=== PATIENT | female | born 1990 | race Caucasian/White ===

== ENCOUNTER → 2021-01-13 | Outpatient (CLI) | payer OTHER ==
[~2021-01-13] MED LIST: CHOL200078 PO; LACT1CAP29 PO; OXYC1TAB15 PO; ZINC50TA39 PO; [UNRECOGNIZED DRUG - REMARK]
== END ==
LOC: LAB 12:51
PROVIDERS: ATTEND Surgery
DX: Z01.812 Encounter for preprocedural laboratory examination (principal); K40.90 Unilateral inguinal hernia, without obstruction or gangrene, not specified as recurrent; Z20.822 Contact with and (suspected) exposure to COVID-19
CPT/HCPCS: U0003; U0005

== ENCOUNTER 2021-01-18 06:06 | Day surgery (SDC) | payer OTHER ==
[~2021-01-18] VITALS: Ht 162.6 cm; Wt 59.5 kg
[~2021-01-18 06:06] MED LIST changes: +ACETAMINOPHEN 500 MG TABLET PO PRN; -OXYC1TAB15 PO; +ceFAZolin SODIUM IV Push 1 GM VIAL. IVP PRN
[2021-01-18] MEDS ORDERED: PROPOFOL 10 MG/ML (20ML) VIAL. IV ONE (06:24)
[2021-01-18] MEDS ORDERED: ROCURONIUM 50 MG/5 ML VIAL. ONE (06:25)
[2021-01-18] MEDS ORDERED: LIDOCAINE 2% PF 5 ML VIAL. ONE (06:25)
[2021-01-18] MEDS ORDERED: fentaNYL PF VIAL 100 MCG/2 ML VIAL ONE (06:25)
[2021-01-18] MEDS ORDERED: ONDANSETRON PF 4 MG/2 ML VIAL. ONE (06:25)
[2021-01-18] MEDS ORDERED: DEXAMETHASONE SOD PHOS 20 MG/5 ML VIAL. ONE (06:25)
[2021-01-18] MEDS ORDERED: IV RINGERS,LACTATED 1000ML 1,000 ML IV SCH (07:00)
[2021-01-18] MEDS ORDERED: MIDAZOLAM HCL/PF 2 MG/2 ML VIAL. ONE (07:06)
[2021-01-18] MEDS ORDERED: BUPIVACAINE-EPI 0.25% 30 ML VIAL KIT. ONE (07:12)
[2021-01-18] MEDS ORDERED: MINERAL OIL for SURGERY 10 ML VIAL. MC ONE (07:12)
--- NOTE | 2021-01-18 07:14 | PDOC1 ---
History and Physical Date of Admission Date of Admission DATE: 01/18/21 TIME: 07:12 Identification/Chief Complaint Chief Complaint Right groin pain Source Source: Patient History of Present Illness History of Present Illness 30-year-old female with complaints of a painful bulge in the right groin been present for approximately 4 years and getting larger over the last 6 months. Past Medical History Cardiovascular: No pertinent hx Pulmonary: No pertinent hx GI: No pertinent hx Heme/Onc: No pertinent hx Hepatobiliary: No pertinent hx Psych: No pertinent hx Rheumatologic: No pertinent hx Infectious disease: No pertinent hx ENT: No pertinent hx Renal/: No pertinent hx Endocrine: No pertinent hx Dermatology: No pertinent hx Past Surgical History Past Surgical History: No pertinent history Family History Family History: No Significant Social History Smoke: No ALCOHOL: rare Drugs: None Current Medications Current Medications Current Medications Acetaminophen (Tylenol) 1,000 mg PREOP 1X PRN PO PRIOR TO PROCEDURE Last administered on 01/18/21at 06:52; Start 01/18/21 at 06:00; Stop 01/18/21 at 15:00 Cefazolin Sodium (Ancef) 1 gm 1X PREOP PRN IVP PRIOR TO PROCEDURE; Start 01/18/21 at 06:00; Stop 01/18/21 at 15:00 Propofol (Diprivan) 200 mg STK-MED ONCE IV ; Start 01/18/21 at 06:24; Stop at 06:25; Status DC Lidocaine HCl (Lidocaine Pf 2% Vial) 5 ml STK-MED ONCE .ROUTE ; Start 01/18/21 at 06:25; Stop 01/18/21 at 06:25; Status DC Dexamethasone Sodium Phosphate (Decadron) 20 mg STK-MED ONCE .ROUTE ; Start 01/18/21 at 06:25; Stop 01/18/21 at 06:25; Status DC Ondansetron HCl (Zofran) 4 mg STK-MED ONCE .ROUTE ; Start 01/18/21 at 06:25; Stop 01/18/21 at 06:25; Status DC Rocuronium [place] (Zemuron) 50 mg STK-MED ONCE .ROUTE ; Start 01/18/21 at 06:25; Stop 01/18/21 at 06:25; Status DC Fentanyl Citrate (Fentanyl 2ml Vial) 100 mcg STK-MED ONCE .ROUTE ; Start 01/18/21 at 06:25; Stop 01/18/21 at 06:25; Status DC Ringer's Solution 1,000 ml @ 75 mls/hr [id number] IV Last administered on 01/18/21at 06:52; Start 01/18/21 at 07:00 Midazolam HCl (Versed) 2 mg STK-MED ONCE .ROUTE ; Start 01/18/21 at 07:06; Stop 01/18/21 at 07:07; Status DC Active Scripts Active Reported Zinc 50 Mg Tablet 1 Tab PO DAILY 30 Days Vitamin D3 (Cholecalciferol (Vitamin D3)) 50 Mcg Tab.chew 50 Mcg PO DAILY [herbal allergy med] PRN DAILY PRN Allergies Allergies: Coded Allergies: amoxicillin (Verified Adverse Reaction, Unknown, Nausea and Vomiting, 01/18/21) clavulanic acid (Verified Adverse Reaction, Unknown, Nausea and Vomiting, 01/18/21) ROS Genitourinary: YES Other (Groin pain right side) Physical Exam General: Alert, Oriented X3, Cooperative, No acute distress HEENT: Atraumatic, EOMI Lungs: Clear to auscultation, Normal air movement Heart: RRR, no murmurs Abdomen: Normal bowel sounds, Soft, No tenderness Rectal Exam: not examined PELVIC: Other (Small right inguinal hernia tender to palpation reducible) Extremities: No edema Skin: No significant lesion Neuro: Normal speech Psych/Mental Status: Mental status NL Vitals Vitals Vital Signs Date Time Temp Pulse Resp B/P (MAP) Pulse Ox O2 Delivery O2 Flow Rate FiO2 01/18/21 06:39 97.6 97 18 114/77 100 Room Air 97.6 Labs Labs Laboratory Tests Test 01/18/21 05:29 Bedside Urine HCG, Qualitative Hcg negative (Negative) Laboratory Tests Test 01/18/21 05:29 Bedside Urine HCG, Qualitative Hcg negative (Negative) VTE Prophylaxis Ordered VTE Prophylaxis Devices: Yes VTE Pharmacological Prophylaxi: Contraindicated Assessment/Plan Assessment/Plan Right inguinal hernia plan robotic assisted laparoscopic repair with mesh Justifications for Admission Other Justification DANIEL ANSARI MD Jan 18, 2021 07:14
[2021-01-18] MEDS ORDERED: SCOPOLAMINE 1.5MG PATCH. TD ONE (07:30)
[2021-01-18] MEDS ORDERED: FAMOTIDINE 20 MG/2 ML VIAL ONE (07:40)
[2021-01-18] MEDS ORDERED: oxyCODONE/APAP 5/325 1 TAB TABLET PO ONE ×2 (07:45)
[2021-01-18] MEDS ORDERED: NEOSTIGMINE METHYLSULFATE 5 MG/5 ML SYRINGE. ONE (08:03)
[2021-01-18] MEDS ORDERED: GLYCOPYRROLATE 1 MG/5 ML VIAL. ONE (08:04)
[2021-01-18] MEDS ORDERED: SEVOFLURANE 61 TO 120 MINUTES. IH ONE (08:10)
--- NOTE | 2021-01-18 08:12 | PDOC4 ---
Operative Note Operative Note Date: January 182020 at 809 Preoperative diagnosis: Right inguinal hernia Postoperative diagnosis: Same Procedure: Robotic assisted laparoscopic right inguinal hernia repair with mesh Surgeon: Gaurang Dictation: Patient is a 30-year-old female with complaints of a painful bulge in her right groin consistent with a hernia. Procedure of robotic assisted laparoscopic right inguinal hernia repair with mesh was explained to the patient detail risk benefits were also discussed including bleeding infection injury to intra-abdominal contents possible necessitating further open operations alternatives to this procedure also discussed with the patient who seemed to understand and gave both verbal and written consent to have the procedure performed. Patient was taken to the operating room placed in the supine position general anesthesia was initiated once patient was sleeping in bed her abdomen was prepped and draped in the usual sterile fashion with ChloraPrep. She was placed in the lithotomy positioning at that point. A area just above the umbilicus was injected with quarter percent Marcaine with epinephrine incision was made 11 blade scalpel and a varies needle was placed within the abdomen creating pneumoperitoneum once this was complete 8 mm ventral port was placed and da Adela camera was placed within the abdomen which was inspected was noted she had right inguinal hernia no other abdomen allergies noted. 8 mm ventral port was placed in the right midabdomen and an 8 mm ventral port was placed in left midabdomen the da Adela robot is brought and docked all port sites surgeon went to the robotic console using a grasper and Endo Collin scissors the peritoneum over the right side was incised and a window propagated inferiorly reducing the hernia sac and contents. A medium Bard 3D max mesh was placed over the floor the right groin area covering the hernia defect. The peritoneum was then closed over the mesh with a running 2 OV lock absorbable suture. Suture was removed from the abdomen the da Adela robot was undocked from all port sites ports were all moved and pneumoperitoneum was reduced all port sites were closed for subcuticular Monocryl Mastisol Steri-Strips and island dressings were applied. Patient was awakened and extubated in the operating room taken to recovery in stable condition all sponge instrument needle counts listed as correct estimated blood loss 5 mL DANIEL ANSARI MD Jan 18, 2021 08:12
--- NOTE | 2021-01-18 08:14 | DISCH ---
DISCHARGE INSTRUCTIONS Condition on Discharge Condition on Discharge: Stable Activity After Discharge Activity Instructions for Disc: Avoid exertion Other activity instructions: No lifting more than 20 pounds for 2 weeks Diet after Discharge Diet after Discharge: Regular Wound Incision Care Other wound/incision instructi: Denise shower in 24 hours Contacting the DRKt after DC Call your doctor for: If your condition worsens Follow-Up Follow up with: Dr. Ansari in 2-week DANIEL ANSARI MD Jan 18, 2021 08:14
[2021-01-18] MEDS ORDERED: KETOROLAC 30 MG/ML VIAL. ONE (08:16)
[2021-01-18] MEDS ORDERED: OXYC1TAB15 PO (08:41)
[2021-01-18 09:14] VITALS: BP 100/55
== END 2021-01-18 09:40 | disposition home or self-care (01) ==
LOC: SURG 06:06 → EDUNIT# 07:30 → SURG 09:40
PROVIDERS: ATTEND Surgery
DX: K40.90 Unilateral inguinal hernia, without obstruction or gangrene, not specified as recurrent (principal); Z79.899 Other long term (current) drug therapy; Z98.890 Other specified postprocedural states; Z72.89 Other problems related to lifestyle; Z88.1 Allergy status to other antibiotic agents; Z88.8 Allergy status to other drugs, medicaments and biological substances
CPT/HCPCS: 49650; 81025; A4364; A4930; A6219; C1781; J0690; J1100; J1885; J2250; J2405; J2704; J2710; J3010; J3490; S2900; A4657